=== PATIENT | female | born 1965 | race Caucasian/White ===

== ENCOUNTER 2019-01-26 15:57 | Inpatient (IN) | payer BC, OTHER ==
[~2019-01-26] VITALS: Ht 167.6 cm; Wt 76.7 kg
[2019-01-26 16:45] VITALS: BP 128/79
--- NOTE | 2019-01-26 16:55 | NUR ---
PT ARRIVED TO THE UNIT AT [facility]OX 1645 BY PARAMEDICS FROM [facility]. PT ALERT AND ORIETNED, UP AD YODIT, VSS, SR ON MONITOR. ADMIT STRIP PRINTED AND DOCUMENTED. ADMISSION COMPLETED. O2 SATS WNL ON ROOM AIR. DENIES C/O PAIN, NO S/SX OF CARD OR RESP DISTRESS NOTED. PHYSICIAN NOTIFIED OF PT ARRIVAL. WILL CONTINUE TO MONITOR AND ACKNOWLEDGE/IMPLEMENT FURTHER ORDERS.
[2019-01-26] MEDS ORDERED: FOLIC ACID1 MG PO (17:08)
[2019-01-26] MEDS ORDERED: VITAMIN B-12500 MCG PO (17:09)
[2019-01-26] MEDS ORDERED: ZANTAC 150MG T150 MG PO (17:10)
[2019-01-26] MEDS ORDERED: TESSALON PERLE100 MG PO (17:11)
[2019-01-26] MEDS ORDERED: SINGULAIR 10 MG10 M1 PO (17:11)
[2019-01-26] MEDS ORDERED: LOPRESSOR25 PO (17:13)
--- NOTE | 2019-01-26 18:47 | NUR ---
PT CONTINUES TO BE ALERT AND ORIENTED, VSS, NO C/O PAIN, O2 SATS WNL ON ROOM AIR. NO S/SX DISTRESS NOTED. PT CONTINUES TO DENY CONCERNS. AT BEDSIDE. CONTINUING TO MONITOR.
[2019-01-26 19:10] VITALS: BP 121/66
[2019-01-27 00:19] VITALS: BP 118/70
[2019-01-27 00:34] VITALS: BP 118/70
[2019-01-27 03:58] LABS: HEMATOCRIT 31.3 % (37.0-47.0); HEMOGLOBIN 11.1 gm/dL (12.0-15.0); MCH 32.4 pg (26.0-34.0); MCHC 35.6 g/dL (28.0-37.0); MCV 91.1 fL (80.0-100.0); RBC 3.43 mil/uL (4.20-5.00); RDW 16.6 % (10.5-14.5)
[2019-01-27 04:04] LABS: CALCIUM 8.9 mg/dL (8.5-10.1); CREATININE 0.6 mg/dL (0.6-1.0); TOTAL PROTEIN 7.2 g/dL (6.4-8.2)
[2019-01-27 04:07] VITALS: BP 109/58
--- NOTE | 2019-01-27 04:08 | NUR ---
ASSUMED PT CARE AT 1900. PT A/OX4, VITAL SIGNS STABLE, ASSESSMENT CHARTED. NO COMPLAINTS OF PAIN. NO/MINIMAL ANGIOEDEMA NOTED. PT COMPLAINED OF SORE THROAT, CEPACOLE GIVEN WHICH SEEMED TO HELP. PT RESTED WELL THROUGH THE NIGHT. PROGRESSING TOWARD PLAN OF CARE. WILL CONTINUE TO MONITOR.
[2019-01-27 11:21] VITALS: BP 108/60
[2019-01-27] MEDS ORDERED: PREDNISONE 10 M10 MG PO (13:18)
[2019-01-27 14:09] VITALS: BP 108/60
[2019-01-27 14:25] VITALS: BP 108/60
--- NOTE | 2019-01-27 14:51 | NUR ---
PATIENT ASSESSMENT CHARTED, VSS, ALERT AND ORIENTED X4, NO SWELLING AROUND THE NECK AREA, NO COMPLAINTS OF PAIN. PATIENT DISCHARGED TO HOME ACCOMPANIED BY . [id number] AGUILAR. PATIENT GIVEN DISCHARGE INSTRUCTIONS AND PRESCRIPTION, PATIENT STATED UNDERSTANDING.
== END 2019-01-27 15:00 | disposition home or self-care (01) | DRG 916 ==
LOC: 2N 15:57 → ENTRNSPT 01-27 14:35 → EDTRNSPTSTS 01-27 14:56 → 2N 01-27 15:00
PROVIDERS: Internal Medicine; ADMIT Internal Medicine
DX: T78.3XXA Angioneurotic edema, initial encounter (principal); J02.9 Acute pharyngitis, unspecified; J32.9 Chronic sinusitis, unspecified; T50.995A Adverse effect of other drugs, medicaments and biological substances, initial encounter; Z88.8 Allergy status to other drugs, medicaments and biological substances; Z79.899 Other long term (current) drug therapy; Y92.89 Other specified places as the place of occurrence of the external cause
CPT/HCPCS: 10081